=== PATIENT | male | born 1955 | race Caucasian/White ===

== ENCOUNTER 2021-06-29 22:21 | Emergency (ER) | payer SELFPAY ==
[2021-06-29 22:25] VITALS: BP 126/74; PULSE 48; RESP 14; TEMP 36.3; O2SAT 97
--- NOTE | 2021-06-29 22:28 | ED.SYNCOPE ---
HPI - Syncope General Chief Complaint: Weakness Stated Complaint: AMB Time Seen by Provider: 06/29/21 22:26 Source: patient, EMS and RN notes reviewed Mode of arrival: EMS Limitations: no limitations History of Present Illness HPI narrative: patient was at 1 of the local bars when he suddenly had an episode of syncope. He says he did not collapse but bystanders said that he had passed out. When EMS found him he was alert and oriented x4. He has a history of coronary artery disease with stent placement. He said he just suddenly felt lightheaded dizzy. He had been drinking 5 or 6 beers. He tells me that he does not stay well hydrated. complaint: collapsed Onset (ago): minute(s) (20) -: second(s) Prodromal symptoms: lightheaded, shortness of breath, diaphoresis and nausea/vomiting Witnessed: Yes - by Bystander Context: alcohol use (5-6 beers) Injuries sustained associated with event: none Current symptoms: back to baseline History: history of CAD Treatments prior to arrival: none Related Data Home Medications Medication Instructions Recorded Confirmed Adult Low Dose Aspirin 81 mg PO DIRECTED 06/29/21 06/29/21 allopurinol 300 mg PO DIRECTED 06/29/21 06/29/21 enalapril maleate 10 mg PO DIRECTED 06/29/21 06/29/21 ezetimibe 10 mg PO DIRECTED 06/29/21 06/29/21 fenofibrate nanocrystallized 145 mg PO DIRECTED 06/29/21 06/29/21 metoprolol succinate 50 mg PO DIRECTED 06/29/21 06/29/21 Allergies Allergy/AdvReac Type Severity Reaction Status Date / Time No Known Allergies Allergy Verified 06/29/21 22:34 Review of Systems Review of Systems: All systems reviewed & are unremarkable except as noted in HPI and below Cardiovascular: Cardiovascular: Reports chest pain (left lateral), Reports diaphoresis, Denies radiating jaw, neck or arm pain and Reports dyspnea Respiratory: Respiratory: Reports dyspnea Gastrointestinal: Gastrointestinal: Reports nausea and Denies vomiting [facility] Past Medical History Medical History (Updated 06/29/21 @ 23:47 by Jaquan Mcconnell MD) BPH (benign prostatic hyperplasia) Coronary artery disease Gout Hyperlipidemia Hypertension Surgical History Surgical History (Updated 06/29/21 @ 22:36 by Jaquan Mcconnell MD) History of coronary artery stent placement Social History Social History (Updated 06/30/21 @ 06:59 by Jaquan Mcconnell MD) Smoking status: Current every day smoker Alcohol intake: current Drinks per week: 42 Alcohol use details: 5-6 Beers every night Substance use: never Exam Const: General: healthy appearing, no acute distress and alert Nutritional Appearance: well nourished Orientation/consciousness: patient oriented x3 HENMT: Head: normal to inspection Ears: external ears normal Face and sinus: normal facial exam Mouth: Yes moist mucous membranes Eyes: Conjunctivae: conjunctivae normal Pupils: Equal, round and reactive pupils present EOM: EOMs intact bilaterally Neck: Neck: normal visual inspection Resp: Effort & Inspection: normal respiratory effort Auscultation: clear to auscultation bilaterally Cardio: Rate: bradycardic Rhythm: regular rhythm GI: GI Palp: Yes Soft to palpation and No Tenderness to palpation present (GI) Auscultation: normal bowel sounds Back/Spine/Pelvis: Cervical Spine: cervical ROM normal Thoracic/Lumbar Spine: thoraco-lumbar ROM normal Skin: General skin exam: normal color Rashes: no rashes Neuro: General: patient oriented x3, moves all extremities, no focal motor deficits and CN's II-XI intact bilaterally Speech: normal speech Gait exam (Neuro): Normal gait present Extrem: General: normal to inspection and no clubbing, cyanosis or edema Psych: Appearance: grossly normal and well kempt Mental Status: mental status grossly normal Affect: normal affect Attitude: cooperative Thought content: Yes Normal thought content present Course Vital Signs Vital signs: Vital Signs Temperature 36.3
--- NOTE | 2021-06-29 22:30 | ECG_ITS ---
Measurements Intervals [place] Rate: 47 P: 6 IA: 221 QRS: -35 QRSD: 127 T: -15 QT: 469 QTc: 416 Interpretive Statements SINUS BRADYCARDIA WITH FIRST DEGREE AV BLOCK LEFT AXIS DEVIATION VOLTAGE CRITERIA FOR LVH CANNOT RULE OUT SEPTAL INFARCT, AGE INDETERMINATE BORDERLINE T WAVE ABNORMALITY- ANTEROLAT/INF LEADS ABNORMAL ECG Electronically Signed On 06-30-2021 7:04:55 CDT by Hermelindo Rico D.O.
[2021-06-29] MEDS: ASPIRIN 81 MG CHEWABLE TABLET 243 MG PO (22:40)
[2021-06-29 22:53] LABS: Basophils Absolute Auto 0.03 K/mm3 (0.00-0.10); Basophils Percent Auto 0.5 % (0.0-1.0); Eosinophils Absolute Auto 0.15 K/mm3 (0.02-0.50); Eosinophils Percent Auto 2.7 % (1.0-6.0); Hemoglobin 14.3 g/dL (12.4-15.3); Immature Granulocyte Absolute 0.02 K/mm3 (0.00-0.00); Immature Granulocyte Percent A 0.4 % (0.0-0.0); Lymphocytes Percent Auto 28.7 % (18.0-42.0); Mean Corpuscular HGB Conc 33.3 g/dL (32.0-36.0); Mean Corpuscular Hemoglobin 30.9 pg (27.0-31.0); Mean Corpuscular Volume 92.9 fL (78.0-102.0); Monocytes Absolute Auto 0.54 K/mm3 (0.10-0.90); Monocytes Percent Auto 9.7 % (2.0-11.0); Neutrophils Absolute Auto 3.2 K/mm3 (1.7-7.2); Platelet Count Result 169 K/mm3 (150-420); Red Blood Count 4.63 M/mm3 (4.70-6.10); Red Cell Distribution Width 13.6 % (11.6-14.4); White Blood Count 5.6 K/mm3 (4.8-10.8)
--- NOTE | 2021-06-29 22:55 | PC.NURSE ---
at frint desk yelling, why am I not allowed back with my . we have been here forever, we want to see him. tried to explain was still having test done, would bring back soon as doctor & test were done.
[2021-06-29 23:00] VITALS: BP 130/79; PULSE 48; RESP 14; O2SAT 96
[2021-06-29 23:09] LABS: INR 1.2; Prothrombin Time 12.4 Seconds (9.50-12.10)
[2021-06-29 23:17] LABS: Alanine Aminotransferase 43 U/L (16-63); Albumin Level 4.1 g/dL (3.4-5.0); Alkaline Phosphatase 17 U/L (46-116); Anion Gap 14 mmol/L (8-16); Aspartate Amino Transferase 37 U/L (15-37); Bilirubin,Total 0.7 mg/dL (0.00-1.00); Blood Urea Nitrogen 26 mg/dL (7-18); Carbon Dioxide 23 mmol/L (21-32); Chloride 117 mmol/L (98-108); Estimated CRCL calculation 45 ml/min; Estimated Glomerular Filt Rate 46; Glucose 110 mg/dL (70-99); Magnesium 1.9 mg/dL (1.8-2.4); Osmolality Calculated 323 mOsm/kg (285-295); Potassium 3.7 mmol/L (3.5-5.1); Sodium 154 mmol/L (136-145); Total Protein 6.5 g/dL (6.4-8.2); Troponin I 28.7 ng/L (0.00-60.4)
[2021-06-29 23:20] LABS: CRP < 0.5 mg/dL (0.0-0.9); Ethanol 10 mg/dL (0-6)
[2021-06-29 23:25] VITALS: BP 118/82; PULSE 49; RESP 12; O2SAT 94
[2021-06-29 23:40] VITALS: BP 134/77; PULSE 46; RESP 14; O2SAT 96
[2021-06-29 23:55] LABS: Amphetamine Screen Urine Negative (Negative); Barbiturate Screen Urine Negative (Negative); Benzodiazepines Screen Urine Negative (Negative); Cannabinoid Screen Urine Negative (Negative); Cocaine Screen Urine Negative (Negative); Methadone Screen Urine Negative (Negative); Opiate Screen Urine Negative (Negative); Phencyclidine Screen Urine Negative (Negative)
[2021-06-30 00:02] VITALS: BP 129/70; PULSE 48; RESP 16; TEMP 36.4; O2SAT 96
== END 2021-06-30 00:05 | disposition home or self-care (01) ==
PROVIDERS: Emergency Provider Emergency Medicine; PCP Physician Assistant
DX: E86.0 Dehydration (principal); E87.0 Hyperosmolality and hypernatremia; I25.10 Atherosclerotic heart disease of native coronary artery without angina pectoris; I10 Essential (primary) hypertension; N40.0 Benign prostatic hyperplasia without lower urinary tract symptoms; E78.5 Hyperlipidemia, unspecified; M10.9 Gout, unspecified; F17.200 Nicotine dependence, unspecified, uncomplicated; Z95.5 Presence of coronary angioplasty implant and graft
CPT/HCPCS: 36415; 80053; 80307; 83735; 84484; 85025; 85610; 86140; 93005; 99284; A9270

== ENCOUNTER 2023-04-18 09:07 | Outpatient (CLI) | payer MEDICARE, SELFPAY ==
--- NOTE | ~2023-04-18 | XR_ITS ---
Lumbosacral Spine: AP and lateral views Clinical History: Pain Findings: There is mild levoscoliosis. The vertebral bodies and posterior elements are intact. The intervertebral disc spaces are preserved. There is moderate to advanced facet arthropathy throughout the lumbar spine. There is moderate to advanced degenerative tearing at L4-L5 and L5-S1. The sacroili ac joints are normally outlined. Impression: Degenerative spondylosis of the lower lumbar spine, as detailed above. Reviewed, dictated and finalized at location M. [employer]GRAM COORDINATOR Impression: Degenerative spondylosis of the lower lumbar spine, as detailed above.
== END 2023-04-18 09:08 | disposition home or self-care (01) ==
LOC: CHSIMG 09:19
PROVIDERS: PCP Physician Assistant; Visit Provider Physician Assistant
DX: M54.50 Low back pain, unspecified (principal); M43.06 Spondylolysis, lumbar region
CPT/HCPCS: 72100